=== PATIENT | male | born 1985 | race American Indian/Alaskan Native ===

== ENCOUNTER 2016-04-26 14:11 | Emergency (ER) | payer SELFPAY ==
[2016-04-26 20:17] LABS: Bilirubin,Urine NEG (Negative); Blood,Urine SM (Negative); Ketones,Urine NEG (Negative); Leukocyte Esterase,Urine NEG (Negative); Mucus,Urine FEW /HPF; Nitrite,Urine NEG (Negative); Protein,Urine <15 mg/dL mg/dL (Negative); Urobilinogen,Urine < 2.0 mg/dL (<2.0); WBC,Urine < 1.0 /HPF (0.0-6.0)
[2016-04-26 20:20] VITALS: BP 156/100
[2016-04-26] MEDS ORDERED: TORADOL IM ONE (20:45)
--- NOTE | 2016-04-26 20:51 | Emergency Department Report ---
HPI - General Chief Complaint: Urogenital-Male Time Seen by Provider: 04/26/16 20:38 - HPI HPI: 31-year-PMH none p/w complaint of one week of left-sided flank pain, increased urinary frequency, patient states he was recently treated for UTI came on 04/18 , treated with keflex and discharged. pt reports mild improvement during course of antibiotics but persistent left-sided flank pain and increased urinary frequency. Patient denies fever or chills nausea or vomiting, states he has been slightly more fatigued than usual. Denies any penile discharge. ED Past Medical Hx - Past Medical History Previous Medical History?: Yes Additional medical history: UTI - Surgical History Past Surgical History?: No - Social History Smoking Status: Current Every Day Smoker Substance Use Type: Alcohol, Marijuana - Medications Home Medications: Home Medications Medication Instructions Recorded Confirmed Last Taken Type Cephalexin [Keflex] 500 mg PO Q12H #14 capsule 04/16/16 Unknown Rx Ibuprofen [Motrin 800 MG tab] 800 mg PO Q8HR PRN #21 tablet 04/16/16 Unknown Rx traMADol [Ultram 50 MG tab] 50 mg PO Q4HR PRN #8 tablet 04/16/16 Unknown Rx Ciprofloxacin HCl [Ciprofloxacin 500 mg PO Q12H #20 tab 04/26/16 Unknown Rx TAB] HYDROcodone/APAP 5-325 [[place] 1 each PO Q6HR PRN #10 tablet 04/26/16 Unknown Rx 5/325] Ibuprofen [Motrin] 600 mg PO Q8H PRN #25 tablet 04/26/16 Unknown Rx Tamsulosin [Flomax] 0.4 mg PO QDAY #10 cap 04/26/16 Unknown Rx ED Review of Systems ROS: Stated complaint: POSS UTI Other details as noted in HPI Constitutional: denies: chills, fever Eyes: denies: eye pain, eye discharge, vision change ENT: denies: ear pain, throat pain Respiratory: denies: cough, shortness of breath, wheezing Cardiovascular: denies: chest pain, palpitations Endocrine: no symptoms reported Gastrointestinal: denies: abdominal pain, nausea, diarrhea Genitourinary: urgency. denies: dysuria Musculoskeletal: denies: back pain, joint swelling, arthralgia Skin: denies: rash, lesions Neurological: denies: headache, weakness, paresthesias Psychiatric: denies: anxiety, depression Hematological/Lymphatic: denies: easy bleeding, easy bruising Physical Exam - Physical Exam Vital Signs: Vital Signs 04/26/16 04/26/16 14:29 20:19 Temperature 98.1 F 97.5 F L Pulse Rate 82 88 Respiratory 18 18 Rate Blood Pressure 145/87 Blood Pressure 156/100 [Right] O2 Sat by Pulse 99 96 Oximetry General: General: Well appearing, well nourished, in no distress. Oriented x 3, normal mood and affect . Ambulating without difficulty. Head: Normocephalic, atraumatic, no visible or palpable masses, depressions, or scaring. Eyes: Visual acuity intact, conjunctiva clear, sclera non-icteric, EOM intact, PERRL Ears: EACs clear, TMs translucent & mobile, ossicles nl appearance, hearing intact. Nose: No external lesions, mucosa non-inflamed, septum and turbinates normal Neck: Supple, without lesions, bruits, or adenopathy, thyroid non-enlarged and non-tender Heart: No cardiomegaly or thrills; regular rate and rhythm, no murmur or gallop Lungs: Clear to auscultation and percussion Abdomen: Bowel sounds normal, no tenderness, organomegaly, masses, or hernia Back: + CVA tenderness, left sided flank pain. Spine normal without deformity or tenderness Extremities: No amputations or deformities, cyanosis, edema or varicosities, peripheral pulsesintact Musculoskeletal: Normal gait and station. No misalignment, asymmetry, crepitation, defects, tenderness, masses, effusions, decreased range of motion, instability, atrophy or abnormal strength or tone in the head, neck, spine, ribs , pelvis or extremities. Neurologic: CN 2-12 normal. Sensation to pain, touch, and proprioception normal. DTRs normal in upper and lower extremities. No pathologic reflexes. ED Course Vital Signs 04/26/16 04/26/16 14:29 20:19 Temperature 98.1 F 97.5 F L Pulse Rate 82 88 Respiratory 18 18 Rate Blood Pressure 145/87 Blood Pressure 156/100 [Right] O2 Sat by Pulse 99 96 Oximetry ED Medical Decision Making - Lab Data Result diagrams: 04/26/16 21:26 04/26/16 21:26 - Medical Decision Making A/P: Renal colic 1-CT shows no obstructing stone 2-we'll treat empirically with Flomax, Motrin, [place], Cipro 3-will provide patient information for primary care follow-up and [place] outpatient [facility] clinic 4-advised to return to the ED for severe hematuria, pyuria, severe fever or chills inability to tolerate anything by mouth or worsening symptoms Critical care attestation.: If time is entered above; I have spent that time in minutes in the direct care of this critically ill patient, excluding procedure time. ED Disposition Clinical Impression: Left flank pain, Dysuria Disposition: DISCHARGED TO HOME OR SELFCARE Is pt being admited?: No Does the pt Need Aspirin: No Condition: Stable Instructions: Renal Colic (ED) Prescriptions: Ciprofloxacin HCl [Ciprofloxacin TAB] 500 mg PO Q12H #20 tab Tamsulosin [Flomax] 0.4 mg PO QDAY #10 cap Ibuprofen [Motrin] 600 mg PO Q8H PRN #25 tablet PRN Reason: Pain HYDROcodone/APAP 5-325 [[place] 5/325] 1 each PO Q6HR PRN #10 tablet PRN Reason: Pain Referrals: PRIMARY CARE, [Primary Care Provider] - 3-5 Days [facility] [Outside] - 3-5 Days [facility] [Outside] - 3-5 Days Forms: Work/School Release Form(ED) Time of Disposition: 22:19
[2016-04-26 21:37] LABS: Basophils % (Auto) 0.5 % (0.0-1.8); Eosinophils % (Auto) 4.3 % (0.0-4.3); Hematocrit 45.8 % (35.5-45.6); Hemoglobin 15.5 gm/dl (11.8-15.2); Mean Corpuscular HGB Conc 34 % (32-34); Mean Corpuscular Hemoglobin 31 pg (28-32); Mean Corpuscular Volume 91 fl (84-94); Platelet Count 260 K/mm3 (140-440); Red Blood Count 5.04 M/mm3 (3.65-5.03); Red Cell Distribution Width 14.3 % (13.2-15.2); White Blood Count 7.2 K/mm3 (4.5-11.0)
[2016-04-26 21:56] LABS: BUN/Creatinine Ratio 13.75; Blood Urea Nitrogen 11 mg/dL (9-20); Carbon Dioxide 25 mmol/L (22-30); Chloride 98.4 mmol/L (98-107); Creatine Kinase 211 units/L (55-170); Glucose 124 mg/dL (75-100); Potassium 3.9 mmol/L (3.6-5.0); Sodium 137 mmol/L (137-145)
[2016-04-26 21:58] LABS: Anion Gap 18 mmol/L
--- NOTE | 2016-04-26 22:37 | Cat Scan Report ---
FINAL REPORT EXAM: CT ABDOMEN PELVIS WO CON HISTORY: ? kidney stone left side first episode TECHNIQUE: Spiral CT scanning of the abdomen and pelvis. No oral or IV contrast administered. Multiplanar reformations. PRIORS: None. FINDINGS: Abdomen: Visualized lung bases unremarkable. Solid organ evaluation is limited due to lack of IV contrast. Punctate, possible papillary calcification noted in the left kidney. No other intrarenal calculi, significant hydronephrosis or abnormal perinephric fluid collections. Remainder of visualized abdominal parenchyma grossly unremarkable. No radiopaque gallstones. Pelvis: Probable phleboliths project in the left lower pelvis. No appreciable calcifications or significant dilatation in the distal ureters. Bowel grossly unremarkable. Appendix within normal limits. No significant free peritoneal fluid or loculated fluid collections. Abdominal aorta is non-aneurysmal. IMPRESSION: 1. Punctate, nonobstructing left renal calcification. 2. Otherwise, unremarkable.
== END 2016-04-26 22:30 | disposition home or self-care (01) ==
LOC: ED 14:11
DX: R10.9 Unspecified abdominal pain (principal); R30.0 Dysuria; F17.200 Nicotine dependence, unspecified, uncomplicated; F12.90 Cannabis use, unspecified, uncomplicated
CPT/HCPCS: 36415; 74176; 80048; 81001; 82550; 85025; 96372; 99284; J1885

== ENCOUNTER 2017-09-17 00:13 | Emergency (ER) | payer SELFPAY ==
[2017-09-17 00:48] LABS: Bilirubin,Urine NEG (Negative); Blood,Urine SM (Negative); Color,Urine Yellow (Yellow); Hyaline Casts,Urine 1 /LPF; Mucus,Urine FEW /HPF; Protein,Urine <15 mg/dL mg/dL (Negative); Urobilinogen,Urine < 2.0 mg/dL (<2.0)
[2017-09-17 05:30] VITALS: BP 134/82
--- NOTE | 2017-09-17 05:35 | Emergency Department Report ---
Blank Doc - Documentation Documentation: HPI Patient reports left flank pain and radiated into left lower quadrant of her abdomen. He reports that he has a history of kidney stones and that he was here a year ago and they did a CT scan and he had kidney stone. Patient said he followed up her urologist but they did not do anything. Pain is 10 out of 10 and sharp and cramping. Denies any fever or chills. Denies any blood in his urine. Patient does not have a primary care doctor. Denies taking any medication for pain. He is also concerned for rash in his penile area that he says is not painful but red and looks like yeast and it itches. PE Abdomen: She reports tenderness to palpate to left lower quadrant but no CVA tenderness. Normal bowel sounds. No guarding or rebound tenderness. Plan CT scan of the abdomen and pelvis without contrast. Patient does have a history of kidney stone and had CT scan in the past. Urinalysis normal except for small amount of blood CBC BMP Toradol IM
[2017-09-17] MEDS ORDERED: TORADOL IM ONE (05:39)
--- NOTE | 2017-09-17 06:11 | Cat Scan Report ---
FINAL REPORT PROCEDURE: CT ABDOMEN PELVIS WO CON TECHNIQUE: Computerized axial tomography of the abdomen and pelvis was performed without intravenous contrast. This study is performed without intravascular contrast material and its sensitivity for abdominal and pelvic pathology, including neoplasms, inflammation, abscess, free fluid, thrombosis, arterial dissection and infarction, is reduced compared with a contrast enhanced study. HISTORY: left flank pain, bld in urine COMPARISON: No prior studies are available for comparison. FINDINGS: Visualized lower thorax: No significant abnormality. Liver: Normal size and attenuation. Spleen: Normal size and attenuation. Gallbladder and biliary system: Normal. Pancreas: Normal. Adrenals: Normal. Kidneys: There are stones in the left kidney. There are no ureteral stones. There is no hydronephrosis.. GI tract: There is no bowel obstruction, colitis or enteritis. Appendix is normal.. Lymph nodes and mesentery: Normal. Vasculature: Normal. Bladder: Normal. Reproductive organs: Normal. Peritoneum: There is no ascites or free air, abscess or adenopathy.. Musculoskeletal structures: No significant abnormality. Other: None. IMPRESSION: There are stones in the left kidney. There are no ureteral stones. There is no hydronephrosis.. There is no bowel obstruction, colitis or enteritis. Appendix is normal.. There is no ascites or free air, abscess or adenopathy.. .
--- NOTE | 2017-09-17 07:27 | Emergency Department Report ---
ED Abdominal Pain HPI - General Chief Complaint: Back Pain/Injury Stated Complaint: BACK PAIN Time Seen by Provider: 09/17/17 05:21 Source: patient Mode of arrival: Ambulatory Limitations: No Limitations - History of Present Illness Initial Comments: This is a 32-year-old male nontoxic, well nourished in appearance, no acute signs of distress presents to the ED with c/o of acute on chronic left sided flank pain x1 year. Patient stated he was diagnosed with kidney stone. Patient describes flank pain as aching with level of 8/10. Patient stated it intermittently radiates to left side of abdomen. Patient has secondary complaint of groin rash and itching 1 month. Patient denies any urinary symptoms. Patient denies any fever, chills, nausea, vomiting, chest pain, short of breath, headache, numbness, tingling, back pain. Patient denies any drug allergies or significant past medical history. MD Complaint: flank pain -: year(s) (1) Location: L flank Radiation: LLQ Migration to: no migration Severity: mild Severity scale (0 -10): 8 Quality: aching Consistency: constant Improves With: nothing Worsens With: nothing Associated Symptoms: denies other symptoms. denies: nausea, vomiting, diarrhea , fever, chills, constipation, dysuria, hematemesis, hematochezia, melena, hematuria, anorexia, syncope - Related Data Previous Rx's Medication Instructions Recorded Last Taken Type Cephalexin [Keflex] 500 mg PO Q12H #14 capsule 04/16/16 Unknown Rx Ibuprofen [Motrin 800 MG tab] 800 mg PO Q8HR PRN #21 tablet 04/16/16 Unknown Rx traMADol [Ultram 50 MG tab] 50 mg PO Q4HR PRN #8 tablet 04/16/16 Unknown Rx Ciprofloxacin HCl [Ciprofloxacin 500 mg PO Q12H #20 tab 04/26/16 Unknown Rx TAB] HYDROcodone/APAP 5-325 [[place] 1 each PO Q6HR PRN #10 tablet 04/26/16 Unknown Rx 5/325] Ibuprofen [Motrin] 600 mg PO Q8H PRN #25 tablet 04/26/16 Unknown Rx Tamsulosin [Flomax] 0.4 mg PO QDAY #10 cap 04/26/16 Unknown Rx Acetaminophen/Codeine [Tylenol 1 tab PO Q6H PRN #12 tab 09/17/17 Unknown Rx /Codeine # 3 tab] Clotrimazole [Antifungal] 30 gm TP BID #1 cream..g. 09/17/17 Unknown Rx Ibuprofen [Motrin] 600 mg PO Q8H PRN #30 tablet 09/17/17 Unknown Rx Allergies Allergy/AdvReac Type Severity Reaction Status Date / Time fish Allergy Itching Uncoded 04/15/16 21:21 ED Review of Systems ROS: Stated complaint: BACK PAIN Other details as noted in HPI Constitutional: denies: chills, fever Eyes: denies: eye pain, eye discharge, vision change ENT: denies: ear pain, throat pain Respiratory: denies: cough, shortness of breath, wheezing Cardiovascular: denies: chest pain, palpitations Endocrine: no symptoms reported Gastrointestinal: denies: abdominal pain, nausea, diarrhea Genitourinary: denies: urgency, dysuria Musculoskeletal: denies: back pain, joint swelling, arthralgia Skin: denies: rash, lesions Neurological: denies: headache, weakness, paresthesias Psychiatric: denies: anxiety, depression Hematological/Lymphatic: denies: easy bleeding, easy bruising ED Past Medical Hx - Past Medical History Previous Medical History?: Yes Hx Kidney Stones: Yes Additional medical history: UTI - Surgical History Past Surgical History?: No - Social History Smoking Status: Light Tobacco Smoker Substance Use Type: None - Medications Home Medications: Home Medications Medication Instructions Recorded Confirmed Last Taken Type Cephalexin [Keflex] 500 mg PO Q12H #14 capsule 04/16/16 Unknown Rx Ibuprofen [Motrin 800 MG tab] 800 mg PO Q8HR PRN #21 tablet 04/16/16 Unknown Rx traMADol [Ultram 50 MG tab] 50 mg PO Q4HR PRN #8 tablet 04/16/16 Unknown Rx Ciprofloxacin HCl [Ciprofloxacin 500 mg PO Q12H #20 tab 04/26/16 Unknown Rx TAB] HYDROcodone/APAP 5-325 [[place] 1 each PO Q6HR PRN #10 tablet 04/26/16 Unknown Rx 5/325] Ibuprofen [Motrin] 600 mg PO Q8H PRN #25 tablet 04/26/16 Unknown Rx Tamsulosin [Flomax] 0.4 mg PO QDAY #10 cap 04/26/16 Unknown Rx Acetaminophen/Codeine [Tylenol 1 tab PO Q6H PRN #12 tab 09/17/17 Unknown Rx /Codeine # 3 tab] Clotrimazole [Antifungal] 30 gm TP BID #1 cream..g. 09/17/17 Unknown Rx Ibuprofen [Motrin] 600 mg PO Q8H PRN #30 tablet 09/17/17 Unknown Rx ED Physical Exam - General Limitations: No Limitations General appearance: alert, in no apparent distress - Head Head exam: Present: atraumatic, normocephalic - Eye Eye exam: Present: normal appearance Pupils: Present: normal accommodation - ENT ENT exam: Present: normal exam, mucous membranes moist - Neck Neck exam: Present: normal inspection, full ROM. Absent: tenderness, meningismus, lymphadenopathy - Respiratory Respiratory exam: Present: normal lung sounds bilaterally. Absent: respiratory distress, wheezes, rales, rhonchi, stridor, chest wall tenderness, accessory muscle use, decreased breath sounds, prolonged expiratory - Cardiovascular Cardiovascular Exam: Present: regular rate, normal rhythm, normal heart sounds. Absent: bradycardia, tachycardia, irregular rhythm, systolic murmur, diastolic murmur, rubs, gallop - GI/Abdominal GI/Abdominal exam: Present: soft, normal bowel sounds. Absent: distended, tenderness, guarding, rebound, rigid, diminished bowel sounds - Rectal Rectal exam: Present: deferred - exam: Present: normal inspection. Absent: testicular tenderness, urethral discharge, scrotal swelling, vertical testicular lie, circumcision External exam: Present: normal external exam, other (redness and itching to bilateral thigh and penile. No ulcers or lesions noted. Nontender to touch. No penile discharge.). Absent: erythema, swelling, lesions, lacerations, ecchymosis, bleeding - Extremities Exam Extremities exam: Present: normal inspection, full ROM, normal capillary refill. Absent: tenderness - Back Exam Back exam: Present: normal inspection, full ROM. Absent: tenderness, CVA tenderness (R), CVA tenderness (L), muscle spasm, paraspinal tenderness, vertebral tenderness, rash noted - Neurological Exam Neurological exam: Present: alert, oriented X3, normal gait - Psychiatric Psychiatric exam: Present: normal affect, normal mood - Skin Skin exam: Present: warm, dry, intact, normal color. Absent: rash ED Course Vital Signs 09/17/17 09/17/17 09/17/17 00:12 00:21 05:30 Temperature 97.8 F 97.8 F Pulse Rate 80 66 68 Respiratory 19 18 18 Rate Blood Pressure 138/88 138/88 Blood Pressure 138/88 134/82 [Right] O2 Sat by Pulse 98 97 99 Oximetry 09/17/17 06:06 Temperature Pulse Rate Respiratory 18 Rate Blood Pressure Blood Pressure [Right] O2 Sat by Pulse Oximetry - Reevaluation(s) Reevaluation #1: 09/17/17 07:29 Patient is speaking in full sentences with no signs of distress noted. ED Medical Decision Making - Medical Decision Making This is a 32-year-old male that presents with kidney stone and jock itch. Patient is stable and was examined by me. UA obtained with slight hematuria. CT obtained and dictated by the radiologist with kidney stone and everything is unremarkable. Vital signs stable. PAtient is discharge with Tylenol No. 3 and Motrin. Patient received Toradol and stated that symptoms has resolved and subsided of pain. Patient was instructed to Follow-up with a primary care doctor in 3-5 days or if symptoms worsen and continue return to emergency room as soon as possible. At time of discharge, the patient does not seem toxic or ill in appearance. No acute signs of distress noted. Patient agrees to discharge treatment plan of care. No further questions noted by the patient. Critical care attestation.: If time is entered above; I have spent that time in minutes in the direct care of this critically ill patient, excluding procedure time. ED Disposition Clinical Impression: Kidney stone, Jock itch Disposition: DC-01 TO HOME OR SELFCARE Is pt being admited?: No Does the pt Need Aspirin: No Condition: Stable Instructions: Kidney Stones (ED), Jock Itch (ED), Acetaminophen/Codeine (By mouth) Additional Instructions: Follow-up with a primary care doctor in 3-5 days or if symptoms worsen and continue return to emergency room as soon as possible. Do not operate any machinery while taking Tylenol with Codeine due to drowsiness. Increase fluid intake as they may help you pass the stone. Prescriptions: Acetaminophen/Codeine [Tylenol /Codeine # 3 tab] 1 tab PO Q6H PRN #12 tab PRN Reason: Pain Clotrimazole [Antifungal] 30 gm TP BID #1 cream..g. Ibuprofen [Motrin] 600 mg PO Q8H PRN #30 tablet PRN Reason: Pain Referrals: PRIMARY CAREMD [Primary Care Provider] - 3-5 Days [id number] WILDER MD [Staff Physician] - 3-5 Days [facility] [Outside] - 3-5 Days [facility] [Outside] - 3-5 Days Forms: Work/School Release Form(ED)
== END 2017-09-17 07:45 | disposition home or self-care (01) ==
LOC: ED 00:13
DX: N20.0 Calculus of kidney (principal); B35.6 Tinea cruris; F17.200 Nicotine dependence, unspecified, uncomplicated; Z91.013 Allergy to seafood
CPT/HCPCS: 74176; 81001; 96372; 99284; J1885